=== PATIENT | male | born 1955 | race Caucasian/White ===

== ENCOUNTER 2018-04-11 04:42 | Inpatient (IN) ==
[2018-04-11] MEDS ORDERED: ONDANSETRON 4 MG/2 ML VIAL IV STA (04:55)
[2018-04-11] MEDS ORDERED: SODIUM CHLORIDE 0.9% 1,000 ML IV STA (04:55)
[2018-04-11 05:38] LABS: Albumin 4.4 G/DL (3.4-5.0); Bilirubin,Total 1.7 MG/DL (0.2-1.0); Calcium 10.9 MG/DL (8.5-10.1); Osmolality,Calculated 285.1 MOS/KG (273-304); Potassium 4.2 MMOL/L (3.5-5.1); Total Protein 7.7 G/DL (6.4-8.3)
[2018-04-11 05:42] LABS: Basophils # 0.1 10*3/uL (0.0-0.2); Basophils % 0.3 % (0.0-0.8); Eosinophils # 0.1 10*3/uL (0.0-0.87); Eosinophils % 0.3 % (0.00-10.9); Hematocrit 50.2 VOL% (42.0-52.0); Hemoglobin 16.9 GM/DL (14.0-18.0); Immature Granulocytes % 0.8 %; Immature Granulocytes Absolute 0.15 #; Lymphocytes # 0.5 10*3/uL (1.4-4.0); Lymphocytes % 2.5 % (21.2-54.2); Mean Corpuscular HGB Conc 33.7 GM/DL (32-36); Mean Corpuscular Hemoglobin 29 PG (27-34); Mean Corpuscular Volume 87.5 FL (87-102); Mean Platelet Volume 11.4 FL (9.6-12.0); Monocytes # 1.7 10*3/uL (0.11-0.8); Monocytes % 8.8 % (1.7-12.7); Neutrophils # 16.9 10*3/uL (1.4-7.4); Neutrophils % 87.3 % (38.7-73.9); Platelet Count 239 T/CUMM (130-400); Red Blood Count 5.74 MC/CUMM (3.8-5.5); Red Cell Distribution Width 13.2 % (9.3-17.3); White Blood Count 19.4 T/CUMM (4-12)
[2018-04-11 06:13] LABS: Apearance,Urine Slightly Hazy (Clear); Bacteria,Urine Occasional /HPF (Few); Bilirubin,Urine Negative (Negative); Blood, Urine Negative (Negative); Glucose,Urine (UA) Negative (Negative); Ketones,Urine 5 mg/dL (Negative); Mucus,Urine Moderate /LPF (Occasional); Nitrite,Urine Negative (Negative); Protein,Urine 30 MG/DL; Squamous Epithelial Cell,Urine Occasional /HPF (0-10); Urine Color Amber (Yellow); Urine Specific Gravity 1.021 (1.001-1.035); WBC,Urine 1 /HPF (0-6)
[2018-04-11] MEDS ORDERED: LACTATED RINGERS 1,000 ML IV ONE (06:52)
[2018-04-11] MEDS ORDERED: ACETAMINOPHEN 325 MG TABLET PO PRN (09:48)
[2018-04-11] MEDS ORDERED: HYDROmorphone 2 MG/1 ML VIAL IV PRN (09:48)
[2018-04-11 11:00] LABS: Band Neutrophils 4 % (0-10); Platelet Estimate Normal; Polychromasia Slight; Segmented Neutrophils 91 % (50-85)
[2018-04-11 11:01] LABS: Total Cells Counted 100
[2018-04-11] MEDS: LACTATED RINGERS 1,000 ML IV SCH ×2 (11:17→22:52)
[2018-04-11] MEDS: ASPIRIN EC 325 MG TABLET PO SCH (11:17)
[2018-04-11] MEDS: PANTOPRAZOLE 40 MG TABLET PO SCH (11:17)
[2018-04-11] MEDS: ONDANSETRON 4 MG/2 ML VIAL IV PRN (15:18)
[2018-04-11] MEDS ORDERED: BENZOCAINE 20% SPRAY 57 GM CAN TOP ONE (16:22)
[2018-04-11] MEDS ORDERED: LORazepam 2 MG/1 ML VIAL IV ONE (16:30)
[2018-04-12] MEDS: ENOXAPARIN 40 MG/0.4 ML SYRINGE SUBCUT SCH (00:15)
[2018-04-12] MEDS: ONDANSETRON 4 MG/2 ML VIAL IV PRN (00:15)
[2018-04-12 05:04] LABS: Basophils % 0.2 % (0.0-0.8); Eosinophils % 0.4 % (0.00-10.9); Hematocrit 40.7 VOL% (42.0-52.0); Hemoglobin 13.4 GM/DL (14.0-18.0); Immature Granulocytes % 0.4 %; Immature Granulocytes Absolute 0.04 #; Lymphocytes # 0.6 10*3/uL (1.4-4.0); Lymphocytes % 6.5 % (21.2-54.2); Mean Corpuscular HGB Conc 32.9 GM/DL (32-36); Mean Corpuscular Hemoglobin 29 PG (27-34); Mean Corpuscular Volume 88.7 FL (87-102); Mean Platelet Volume 12.3 FL (9.6-12.0); Monocytes # 0.9 10*3/uL (0.11-0.8); Monocytes % 9.5 % (1.7-12.7); Neutrophils # 7.5 10*3/uL (1.4-7.4); Platelet Count 184 T/CUMM (130-400); Red Blood Count 4.59 MC/CUMM (3.8-5.5); Red Cell Distribution Width 13.3 % (9.3-17.3)
[2018-04-12 05:34] LABS: Calcium 8.3 MG/DL (8.5-10.1); Osmolality,Calculated 288.8 MOS/KG (273-304); Potassium 3.6 MMOL/L (3.5-5.1)
[2018-04-12] MEDS: LACTATED RINGERS 1,000 ML IV SCH ×3 (05:35→22:46)
[2018-04-12] MEDS: ASPIRIN EC 325 MG TABLET PO SCH (09:46)
[2018-04-12] MEDS: PANTOPRAZOLE 40 MG TABLET PO SCH (09:46)
[2018-04-13 07:23] VITALS: BP 147/92
[2018-04-13] MEDS: ENOXAPARIN 40 MG/0.4 ML SYRINGE SUBCUT SCH (08:22)
[2018-04-13] MEDS: ASPIRIN EC 325 MG TABLET PO SCH (08:23)
[2018-04-13] MEDS: PANTOPRAZOLE 40 MG TABLET PO SCH (08:23)
[2018-04-13] MEDS: LACTATED RINGERS 1,000 ML IV SCH (08:28)
== END 2018-04-13 09:35 | disposition home or self-care (01) | DRG 390 ==
LOC: EDBD → EDUNIT# → N.ED 04:42 → N.EDINP 06:50 → N.2E 09:42
PROVIDERS: ADMIT Surgery; ATTEND Surgery